=== PATIENT | female | born 1935 | race Caucasian/White ===

== ENCOUNTER 2020-12-13 13:00 | Outpatient (CLI) | payer MEDICARE ==
--- NOTE | 2020-12-13 18:39 | Ultrasound Report ---
PROCEDURE: Head or Neck Soft Tissue INDICATIONS: THYROID NODULE TECHNIQUE: Real-time scanning was performed of the thyroid gland, with image documentation. COMPARISON: None FINDINGS: Right: Thyroid lobe measures 5.5 x 2.4 x 1.8 cm, and is homogeneous in echotexture. Left: Thyroid lobe measures 5.5 x 2.1 x 1.8 cm, and is homogenous in echotexture. Isthmus: 3 mm thick. Nodule number: One Location: Right superior and posterior Size: 1.9 x 1.2 x 1.4 cm. Composition: Spongiform Echogenicity: Hyperechoic Shape: Wider than tall. Margins: Smooth Echogenic foci: Punctate Total points: 4 ACR TI-RADS category: 4 Nodule number: Two Location: Right thyroid mid posterior Size: 2.3 x 1.3 x 1.7 cm. Composition: Solid Echogenicity: Hypoechoic Shape: wider than tall. Margins: Lobulated Echogenic foci: Peripheral Total points: 8 ACR TI-RADS category: 5 Nodule number: Three Location: Right thyroid inferior anterior and lateral Size: 1.9 x 0.9 x 1.2 cm. Composition: Solid Echogenicity: Hypoechoic Shape: wider than tall. Margins: Smooth Echogenic foci: Punctate Total points: 7 ACR TI-RADS category: 5 Nodule number: Four Location: Left thyroid superiorly medially and posteriorly Size: 1.7 x 1.0 x 1.1 cm. Composition: Solid Echogenicity: Isoechoic Shape: wider than tall. Margins: Smooth Echogenic foci: None Total points: 3 ACR TI-RADS category: 3 Nodule number: Five Location: Left mid thyroid lobe Size: 1.7 x 1.9 x 1.8 cm. Composition: Predominantly solid Echogenicity: Isoechoic Shape: Taller than wide Margins: Smooth Echogenic foci: None Total points: 6 ACR TI-RADS category: 4 Nodule number: Six Location: Left inferior thyroid lobe Size: 2.4 x 1.8 x 2.9 cm. Composition: Mixed cystic and solid Echogenicity: Hypoechoic Shape: wider than tall. Margins: Smooth Echogenic foci: Macrocalcifications Total points: 4 ACR TI-RADS category: 4 IMPRESSION: Multiple thyroid nodules most of which meet criteria for FNA. The 2 most suspicious nodules are howev er the TI-RADS category 5 nodules which are labeled #2 and #3 within the right mid thyroid lobe poste riorly in the inferior right thyroid lobe anteriorly and laterally. Recommend FNA of these 2 lesions. ACR TI-RADS definitions and recommendations: TI-RADS 1 (benign): 0 points. FNA not needed. TI-RADS 2 (not suspicious): 2 points. FNA not needed. TI-RADS 3 (mildly suspicious): 3 points. "FNA if 2.5 cm or larger, follow up if 1.5 cm or larger (at 1, 3, and 5 years). TI-RADS 4 (moderately suspicious): 4-6 points. "FNA if 1.5 cm or larger, follow up if 1 cm or larger (at 1, 2, 3, and 5 years). TI-RADS 5 (highly suspicious): 7 points or more. "FNA if 1 cm or larger, follow up if 0.5 cm or larger (every year for 5 years). Reviewed by: Sachin Mckinnon DO on 12/13/2020 5:37 PM [facility] Approved by: Sachin Mckinnon DO on 12/13/2020 5:37 PM [facility] Station ID: [id number]
== END 2020-12-13 13:01 | disposition home or self-care (01) ==
LOC: DI 13:00
PROVIDERS: ATTEND Physician Assistant
DX: E05.20 Thyrotoxicosis with toxic multinodular goiter without thyrotoxic crisis or storm (principal)

== ENCOUNTER 2020-12-22 07:29 | Outpatient (CLI) | payer MEDICARE ==
--- NOTE | 2020-12-22 11:02 | Ultrasound Report ---
PROCEDURE: Abdomen Limited INDICATIONS: ELEVATED LIVER ENZYMES TECHNIQUE: Real-time scanning was performed of the abdominal and retroperitoneal organs, with image documentatio n. COMPARISON: None. FINDINGS: Liver: The liver demonstrates diffusely increased echotexture/heterogeneous echotexture without focal abnormalities which is consistent with chronic hepatocellular disease/hepatic steatosis. Gallbladder: Gallbladder is normal in appearance without gallstones, gallbladder wall thickening, or pericholecystic fluid. Negative sonographic Bey's sign. Biliary ducts: Intrahepatic bile ducts are non-dilated. Extrahepatic bile duct caliber measures 7 m m. Normal is 6-7 mm or less in diameter, or 10 mm or less post-cholecystectomy. Pancreas: Visualized portions of the pancreas are sonographically normal. Kidneys: Right kidney is normal in size and echotexture. Right kidney measures 9.6 cm long. No hydro nephrosis or nephrolithiasis. No solid masses. Miscellaneous: No free abdominal fluid. IMPRESSION: Liver demonstrates diffusely echogenic/heterogeneous echotexture without focal intrahepatic abnormali ties. This is compatible with hepatic steatosis or sequela of chronic hepatocellular disease. Finding s may explain abnormal liver function tests. Normal sonographic evaluation of the gallbladder and biliary ducts. Normal sonographic evaluation of the pancreas. Reviewed by: Vimal Correa MD on 12/22/2020 11:01 AM PST Approved by: Vimal Correa MD on 12/22/2020 11:01 AM PST Station ID: [id number]
== END 2020-12-22 07:30 | disposition home or self-care (01) ==
LOC: DI 07:29
PROVIDERS: ATTEND Physician Assistant
DX: R94.5 Abnormal results of liver function studies (principal)

== ENCOUNTER 2023-03-16 11:00 | Outpatient (CLI) | payer MEDICARE, MEDICAID ==
[2023-03-16 17:37] LABS: BASOPHILS % (AUTO) 0.6 %; EOSINOPHILS # (AUTO) 0.1 10^3/uL (0.0-0.7); EOSINOPHILS % (AUTO) 2.1 %; HCT - HEMATOCRIT 47.7 % (37.0-47.0); HGB - HEMOGLOBIN 14.8 g/dL (12.0-16.0); LYMPHOCYTES # (AUTO) 1.3 10^3/uL (1.5-3.5); LYMPHOCYTES % (AUTO) 20.2 %; MEAN CORPUSCULAR HEMOGLOBIN 30.5 pg (27.0-31.0); MEAN CORPUSCULAR VOLUME 98.1 fL (81.0-99.0); MEAN PLATELET VOLUME 9.6 fL (7.9-10.8); MONOCYTES # (AUTO) 0.7 10^3/uL (0.0-1.0); MONOCYTES % (AUTO) 10.7 %; NEUTROPHILS # (AUTO) 4.3 10^3/uL (1.5-6.6); NEUTROPHILS % (AUTO) 66.2 %; PLT - PLATELET COUNT 263 10^3/uL (130-450); RED BLOOD COUNT 4.86 10^6/uL (4.20-5.40); RED CELL DISTRIBUTION WIDTH 13.1 % (12.0-15.0); WHITE BLOOD COUNT 6.5 x10^3/uL (4.8-10.8)
[2023-03-16 18:02] LABS: CALCIUM 9.4 mg/dL (8.5-10.3); CREATININE 0.8 mg/dL (0.6-1.3)
[2023-03-16 18:14] LABS: THYROID STIMULATING HORMONE 0.02 uIU/mL (0.34-5.60)
[2023-03-16 18:22] LABS: FERRITIN 233.9 ng/mL (11.0-306.8)
== END 2023-03-16 11:15 | disposition home or self-care (01) ==
LOC: LAB.N 11:00
PROVIDERS: ATTEND Physician Assistant Medical
DX: R26.81 Unsteadiness on feet (principal)
CPT/HCPCS: 36415; 80048; 82607; 82728; 82746; 83540; 84439; 84443; 84466; 85025